=== PATIENT | female | born 1990 | race Caucasian/White ===

== ENCOUNTER 2023-09-30 07:28 | Outpatient (AMB) | payer OTHER, SELFPAY ==
--- NOTE | 2023-09-30 07:32 | MHC.PC.OV ---
Vital Signs 09/30/23 07:33 Height 5 ft 3 in Weight 250 lb BMI 44.3 BP 96/64 Blood Pressure Location Rt brachial Position Sitting Pulse 74 Pulse Source Pulse Oximeter Pulse Oximetry (%) 99 Oxygen Delivery Method Room Air Intake Visit Reasons: npv-requesting phy Intake Note: Pt is here today for New patient visit PE. Allergies aspirin Allergy (Severe, Verified 09/30/23 07:35) rash throat closes bismuth subsalicylate [From Pepto-Bismol] Allergy (Verified 09/30/23 07:35) severe upset stomach Penicillins Allergy (Verified 09/30/23 07:35) rash throat closes Medication List - Last Reconciled 09/30/23 by Valery Tran MD No Known Home Meds Tobacco use date assessed: 09/30/23 Dental Screening Dental Screen Date: 09/30/23 Did you have a dental visit in the last 12 months?: Yes Did you have a dental problem in the last 6 months where you did not have access to dental care?: No Was dental information given to patient?: Patient has dentist HPI npv-requesting phy HPI Details 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 Pt c/o frequent migraine for 10 yrs occasionally 1-2 a week. Patient would like to be referred to be tested for ADHD. She reports history of irregular menses and would like to be evaluated by obstetrics gynecology md. [facility] Surgical History Hx of adenoidectomy Hx of tonsillectomy Hx of cholecystectomy Family History Father No problems noted. Mother Lung disease Social History (Updated 09/30/23 @ 08:26 by Valery Tran MD) Household Members Other:: lives with father, works for [employer], Housing: House Patient Tobacco Use Status: Never used Tobacco e-Cigarette/Vaping Use: Never Used service: No Current occupational status: employed Cognitive needs: No Hearing needs: No Vision needs: Yes Questionnaire PHQ-9 Over the last 2 weeks, how often have you been bothered by any of the following problems? 1. Little interest or pleasure in doing things: not at all 2. Feeling down, depressed, or hopeless: not at all 3. Trouble falling or staying asleep, or sleeping too much: more than half the days 4. Feeling tired or having little energy: more than half the days 5. Poor appetite or overeating: more than half the days 6. Feeling bad about yourself - or that you are a failure or have let yourself or your family down: more than half the days 7. Trouble concentrating on things, such as reading the newspaper or watching television: not at all 8. Moving or speaking so slowly that other people could have noticed. Or the opposite - being so fidgety or restless that you have been moving around a lot more than usual: not at all 9. Thoughts that you would be better off or of hurting yourself in some way: not at all Total score: 8 Depression Screening Interpretation: Negative Depression Screening Done: Yes Source: Developed by Drs. Mina Nixon, Adilia Car, Cayden Ford and colleagues, with an educational tangela from [employer]. Thrive Questionnaire Date Thrive assessed: 09/30/23 I am a: Patient What is your living situation today?: I have a steady place to live Within the past 12 months, did the food you bought not last and you didn't have the money to get more?: Never true Within the past 12 months, did you worry whether your food would run out before you got money to buy more?: Never true Do you have trouble paying for medicines?: No Do you have trouble getting transportation to medical appointments?: No Do you have trouble paying your heating and electricity bill?: No Do you have trouble taking care of your child, family member or friend?: No Do you have trouble with day-to-day activities such as bathing, preparing meals, shopping, managing finances, etc.?: No Are you currently unemployed and looking for a job?: No Are you interested in more education?: No Please select the resources that you would like help with: None THRIVE Score: 0 AUDIT C Alcohol Use Questionnaire (AUDIT-C) 1. How often do you have a drink containing alcohol?: Monthly or less 2. How many drinks containing alcohol do you have on a typical day when you are drinking?: 1 or 2 3. How often do you have six or more drinks on one occasion?: Never Total Score: 1 OSCAR-7 AMB Questionnaire OSCAR-7 Date OSCAR - 7 assessed: 09/30/23 Feeling nervous, anxious, or on edge: 2 = More than half the days Not being able to stop or control worryin = Several days Worrying too much about different things: 2 = More than half the days Trouble relaxin = More than half the days Being so restless that it is hard to sit still: 0 = Not at all Becoming easily annoyed or irritable: 0 = Not at all Feeling afraid as if something awful might happen: 0 = Not at all Total OSCAR-7 score (0-4 normal; 5-9 mild; 10-14 moderate; 15-21 severe): 7 Source: Developed by Drs. Mina Nixon, Adilia Car, Cayden Ford and colleagues, with an educational tangela from [employer]. Review of Systems Const All systems reviewed & are unremarkable except as noted in HPI and below Reports no additional complaints Eyes Reports no additional complaints ENT Reports no additional complaints Card Reports no additional complaints Resp Reports no additional complaints GI Reports no additional complaints Reports no additional complaints Physical exam (Primary Care) Vital Signs: Last Vital Signs Pulse 74 09/30/23 07:33 BP 96/64 09/30/23 07:33 Pulse Ox 99 09/30/23 07:33 Oxygen Delivery Method Room Air 09/30/23 07:33 BMI result Body Mass Index 44.3 Tobacco/Smoking Status: Tobacco use Status Tobacco use date assessed 09/30/23 09/30/23 07:40 Patient Tobacco Use Status Never used Tobacco 09/30/23 08:26 e-Cigarette/Vaping Use Never Used 09/30/23 08:26 PHQ-9: PHQ-9 Score PHQ-9: Total score 8 09/30/23 08:42 Depression Screening Interpretation: Negative Thrive Assessment: Date of Thrive Assessment Date Thrive assessed 09/30/23 09/30/23 08:42 Const General: no acute distress HENMT Head: Yes normal to inspection Ears: hearing grossly normal bilaterally General nose exam: Normal external nose present Face and sinus: Yes normal facial exam Mouth: Normal oral and palatal mucosa present Eyes General: appearance normal, both eyes and all related structures Neck Neck: Yes no lymphadenopathy and Yes supple Resp Effort & Inspection: normal respiratory effort Auscultation: clear to auscultation bilaterally Cardio Rhythm: regular rhythm Heart sounds: S1 normal heart sound present and S2 normal heart sound present GI Inspection: Yes normal to inspection Palpation (GI): Soft to palpation Percussion: Yes normal to percussion Auscultation: normal bowel sounds Assessment and Plan Assessment & Plan (1) Annual physical exam: Code(s): Z00.00 - Encounter for general adult medical examination without abnormal findings Plan: Well-balanced diet regular exercise decrease caloric intake and weight loss discussed with the patient (2) Overweight: Code(s): E66.3 - Overweight Plan: See above (3) Allergies: Comment: Question of food allergy Code(s): T78.40XA - Allergy, unspecified, initial encounter Plan: Referral to the drapery hand (4) ADHD: Code(s): F90.9 - Attention-deficit hyperactivity disorder, unspecified type Plan: Referred to Psychology for ADHD testing (5) Irregular menses: Code(s): N92.6 - Irregular menstruation, unspecified Plan: 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 She will continue [id number] migraine Excedrin as needed Orders: Orders Complete Blood Count Auto Diff Today T78.40XA - Allergy, unspecified, initial encounter Lipid Panel Today E66.3 - Overweight, Z00.00 - Encounter for general adult medical examination without abnormal findings Comprehensive [place]. Panel Fast Today E66.3 - Overweight, Z00.00 - Encounter for general adult medical examination without abnormal findings TSH reflex Free T4 Today E66.3 - Overweight, Z00.00 - Encounter for general adult medical examination without abnormal findings UA w Microscopic Today E66.3 - Overweight, Z00.00 - Encounter for general adult medical examination without abnormal findings DHEA Sulfate Today N92.6 - Irregular menstruation, unspecified Referrals Allergy & Immunology Referral T78.40XA - Allergy, unspecified, initial encounter Psychology Referral F90.9 - Attention-deficit hyperactivity disorder, unspecified type GRADES 1 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
[2023-09-30 07:33] VITALS: BP 96/64; PULSE 74; O2SAT 99; BMI 44.3
== END 2023-09-30 08:39 | disposition home or self-care (01) ==
PROVIDERS: PCP Internal Medicine; Visit Provider Internal Medicine
DX: Z00.00 Encounter for general adult medical examination without abnormal findings (principal); E66.3 Overweight; T78.40XA Allergy, unspecified, initial encounter; F90.9 Attention-deficit hyperactivity disorder, unspecified type; N92.6 Irregular menstruation, unspecified; G43.909 Migraine, unspecified, not intractable, without status migrainosus
CPT/HCPCS: 99385

== ENCOUNTER 2023-10-20 10:32 | Outpatient (REF) | payer OTHER, SELFPAY ==
[2023-10-20 13:36] LABS: Appearance Urine Cloudy; Color Urine Yellow; Glucose Urine UA Negative (Negative); Leukocyte Esterase Urine Moderate (2+) (Negative); Nitrite Urine Negative (Negative); PH 6.5 (5.0-9.0); UMIC TRIGGER UA YES; Urine Blood Moderate (2+) (Negative); Urine Ketones Negative (Negative); Urine Protein Negative (Neg-Trace)
[2023-10-20 13:43] LABS: Bacteria Urine 3+ (None Seen); Hyaline Casts Urine 0-2 /LPF (0-2); WBC Urine >50 /HPF (0-5)
[2023-10-20 13:45] LABS: MANUAL DIFF FLAG NO
[2023-10-20 14:11] LABS: Basophils Absolute Auto 0.1 X10*3/uL (0.0-0.2); Basophils Percent Auto 0.7 % (0-2); Eosinophils Absolute Auto 0.3 X10*3/uL (0.0-0.4); Eosinophils Percent Auto 3.3 % (0-4); Hematocrit 41.9 % (37.0-47.0); Hemoglobin 14.3 g/dl (12.0-16.0); Imm Gran Abs Auto 0.03 X10*3/uL (0.00-0.03); Imm Gran Pct Auto 0.4 % (0.0-0.4); Lymphocytes Absolute Auto 2.2 X10*3/uL (1.2-4.9); Lymphocytes Percent Auto 29.8 % (20-40); Mean Corpuscular HGB Conc 34.1 g/dl (31.0-35.0); Mean Corpuscular Hemoglobin 30.3 pg (27.0-33.0); Mean Corpuscular Volume 88.8 fL (80.0-98.0); Mean Platelet Volume 9.6 fL (9.4-12.3); Monocytes Absolute Auto 0.5 X10*3/uL (0.1-1.2); Monocytes Percent Auto 6.1 % (2-11); Neutrophils Absolute Auto 4.5 x10*3/uL (2.0-8.3); Neutrophils Percent Auto 59.7 % (45-73); Platelet Count 212 X10*3/uL (160-400); Red Blood Count 4.72 X10*6/uL (4.20-5.50); Red Cell Distribution Width 12.4 % (11.0-16.0); White Blood Count 7.5 X10*3/uL (4.8-10.8)
[2023-10-20 14:36] LABS: Alanine Aminotransferase 12 U/L (0-31); Albumin Level 4.2 g/dL (3.5-5.0); Alkaline Phosphatase 77 U/L (39-117); Anion Gap 10 (12-20); Aspartate Amino Transferase 14 U/L (5-31); Bilirubin Total 0.7 mg/dL (0.0-1.0); Blood Urea Nitrogen 10 mg/dL (9-16); Calcium 9.7 mg/dL (8.4-10.2); Carbon Dioxide 27 mmol/L (22-29); Chloride 106 mmol/L (96-108); Cholesterol 160 mg/dL (<200); Estimated Glomerular Filt Rate > 60; Glucose Fasting 101 mg/dL (60-99); HDL Cholesterol 50 mg/dL (>40); LDL Cholesterol Calculated 94 mg/dL (<100); Potassium 4.3 mmol/L (3.3-5.1); Sodium 139 mmol/L (135-145); Total Protein 7.2 g/dL (6.5-8.0); Triglycerides 83 mg/dL (<150)
[2023-10-20 14:39] LABS: TSH reflex Free T4 1.93 uIU/mL (0.32-4.0)
[2023-10-21 07:39] LABS: DHEA Sulfate 58 mcg/dL (19-237)
== END 2023-10-20 10:33 | disposition home or self-care (01) ==
LOC: HO.HMGCLDS 10:32
PROVIDERS: PCP Internal Medicine; Visit Provider Internal Medicine
DX: Z00.00 Encounter for general adult medical examination without abnormal findings (principal); T78.40XA Allergy, unspecified, initial encounter; E66.3 Overweight; N92.6 Irregular menstruation, unspecified
CPT/HCPCS: 36415; 80053; 80061; 81001; 82627; 84443; 85025

== ENCOUNTER 2023-10-22 10:26 | Outpatient (REF) | payer OTHER, SELFPAY ==
[2023-10-22 13:04] LABS: Appearance Urine Clear; Color Urine Yellow; Glucose Urine UA Negative (Negative); Leukocyte Esterase Urine Small (1+) (Negative); Nitrite Urine Negative (Negative); UMIC TRIGGER UA YES; Urine Blood Moderate (2+) (Negative); Urine Ketones Negative (Negative); Urine Protein Negative (Neg-Trace)
[2023-10-22 13:08] LABS: Bacteria Urine 1+ (None Seen); Hyaline Casts Urine 0-2 /LPF (0-2)
== END 2023-10-22 10:27 | disposition home or self-care (01) ==
LOC: HO.HMGCLDS 10:26
PROVIDERS: PCP Internal Medicine; Visit Provider Internal Medicine
DX: Z00.00 Encounter for general adult medical examination without abnormal findings (principal)
CPT/HCPCS: 81001

== ENCOUNTER 2024-01-04 08:52 | Outpatient (AMB) | payer OTHER, SELFPAY ==
[2024-01-04 09:02] VITALS: BP 120/82; PULSE 67; O2SAT 99; BMI 43.9
--- NOTE | 2024-01-04 09:02 | MHC.PC.OV ---
Vital Signs 01/04/24 09:02 Height 5 ft 3 in Weight 248 lb BMI 43.9 BP 120/82 Blood Pressure Location Rt brachial Position Sitting Pulse 67 Pulse Source Pulse Oximeter Pulse Oximetry (%) 99 Oxygen Delivery Method Room Air Intake Visit Reasons: 3M F/U (original appt) Intake Note: Pt is here today for 3 months follow up visit. Allergies aspirin Allergy (Severe, Verified 01/04/24 09:06) rash throat closes bismuth subsalicylate [From Pepto-Bismol] Allergy (Verified 01/04/24 09:06) severe upset stomach Penicillins Allergy (Verified 01/04/24 09:06) rash throat closes Tobacco use date assessed: 01/04/24 Dental Screening Dental Screen Date: 09/30/23 HPI 3M F/U (original appt) HPI Details Pt c/o tingling sensation on the lips for a few days. She denies difficulty swallowing or breathing any triggering factors, change in the diet. She has been using chapstick for dry lips more often for the last few days. [facility] Surgical History Hx of adenoidectomy Hx of tonsillectomy Hx of cholecystectomy Family History Father No problems noted. Mother Lung disease Social History Household Members Other:: lives with father, works for [employer], Housing: House Patient Tobacco Use Status: Never used Tobacco e-Cigarette/Vaping Use: Never Used service: No Current occupational status: employed Cognitive needs: No Hearing needs: No Vision needs: Yes Questionnaire PHQ-9 Over the last 2 weeks, how often have you been bothered by any of the following problems? 1. Little interest or pleasure in doing things: not at all 2. Feeling down, depressed, or hopeless: not at all 3. Trouble falling or staying asleep, or sleeping too much: not at all 4. Feeling tired or having little energy: several days 5. Poor appetite or overeating: several days 6. Feeling bad about yourself - or that you are a failure or have let yourself or your family down: not at all 7. Trouble concentrating on things, such as reading the newspaper or watching television: not at all 8. Moving or speaking so slowly that other people could have noticed. Or the opposite - being so fidgety or restless that you have been moving around a lot more than usual: not at all 9. Thoughts that you would be better off or of hurting yourself in some way: not at all Total score: 2 Depression Screening Interpretation: Negative Depression Screening Done: Yes [id number] - PHQ-9 Billing: Yes Source: Developed by Drs. Mina Nixon, Adilia Car, Cayden Ford and colleagues, with an educational tangela from [employer]. Thrive Questionnaire Date Thrive assessed: 12/28/23 I am a: Patient What is your living situation today?: I have a steady place to live Within the past 12 months, did the food you bought not last and you didn't have the money to get more?: Never true Within the past 12 months, did you worry whether your food would run out before you got money to buy more?: Never true Do you have trouble paying for medicines?: No Do you have trouble getting transportation to medical appointments?: No Do you have trouble paying your heating and electricity bill?: No Do you have trouble taking care of your child, family member or friend?: No Do you have trouble with day-to-day activities such as bathing, preparing meals, shopping, managing finances, etc.?: No Are you interested in more education?: I choose not to answer this question Please select the resources that you would like help with: None Currently or been in a relationship where the following occur: No concerns reported THRIVE Score: 0 AUDIT C Alcohol Use Questionnaire (AUDIT-C) 1. How often do you have a drink containing alcohol?: Monthly or less 2. How many drinks containing alcohol do you have on a typical day when you are drinking?: 1 or 2 3. How often do you have six or more drinks on one occasion?: Never Total Score: 1 OSCAR-7 AMB Questionnaire OSCAR-7 Date OSCAR - 7 assessed: 09/30/23 Feeling nervous, anxious, or on edge: 1 = Several days Not being able to stop or control worryin = Several days Worrying too much about different things: 1 = Several days Trouble relaxin = Not at all Being so restless that it is hard to sit still: 0 = Not at all Becoming easily annoyed or irritable: 0 = Not at all Feeling afraid as if something awful might happen: 1 = Several days Total OSCAR-7 score (0-4 normal; 5-9 mild; 10-14 moderate; 15-21 severe): 4 Source: Developed by Drs. Mina Nixon, Adilia Car, Cayden Ford and colleagues, with an educational tangela from [employer]. Review of Systems Const All systems reviewed & are unremarkable except as noted in HPI and below ENT Reports no additional complaints Card Reports no additional complaints Resp Reports no additional complaints GI Reports no additional complaints Reports no additional complaints Physical exam (Primary Care) Vital Signs: Last Vital Signs Pulse 67 01/04/24 09:02 BP 120/82 01/04/24 09:02 Pulse Ox 99 01/04/24 09:02 Oxygen Delivery Method Room Air 01/04/24 09:02 BMI result Body Mass Index 43.9 Tobacco/Smoking Status: Tobacco use Status Tobacco use date assessed 01/04/24 01/04/24 09:09 Patient Tobacco Use Status Never used Tobacco 01/04/24 09:09 e-Cigarette/Vaping Use Never Used 01/04/24 09:02 PHQ-9: PHQ-9 Score PHQ-9: Total score 2 01/04/24 09:02 Depression Screening Interpretation: Negative Thrive Assessment: Date of Thrive Assessment Date Thrive assessed 12/28/23 01/04/24 09:02 Currently or been in a relationship where the following occur: No concerns reported Const General: no acute distress HENMT Head: Yes normal to inspection Face and sinus: Yes normal facial exam Mouth: Normal oral and palatal mucosa present and other (Dry lips ) Teeth and gingiva: dentition normal Throat: Yes posterior oropharynx normal Eyes General: appearance normal, both eyes and all related structures Resp Effort & Inspection: normal respiratory effort Auscultation: clear to auscultation bilaterally Cardio Rhythm: regular rhythm Heart sounds: S1 normal heart sound present and S2 normal heart sound present Coding Level of Care Code Est Pt Level 3 (67808) Diagnoses Dry lips K13.0 Assessment & Plan Assessment & Plan (1) Dry lips: Code(s): K13.0 - Diseases of lips Category: Medical Plan: Patient was advised to stop using chapstick as it may cause allergic reaction. She will keep her lips moist with petroleum jelly applied multiple times
== END 2024-01-04 09:56 | disposition home or self-care (01) ==
PROVIDERS: PCP Internal Medicine; Visit Provider Internal Medicine
DX: K13.0 Diseases of lips (principal)

== ENCOUNTER → 2024-01-04 08:52 | Outpatient (BNVA) | payer OTHER, SELFPAY | PROVIDERS: PCP Internal Medicine; Visit Provider Internal Medicine | DX: K13.0 Diseases of lips (principal) | CPT/HCPCS: 96127; 99212 ==

== ENCOUNTER 2024-01-14 09:09 | Outpatient (AMB) | payer OTHER, SELFPAY ==
[2024-01-14 09:52] VITALS: BP 118/80; PULSE 78; O2SAT 97
--- NOTE | 2024-01-14 09:52 | MHC.OFFWIV ---
Intake Vital Signs 01/14/24 09:52 Weight 250 lb BP 118/80 Blood Pressure Location Rt brachial Position Sitting Pulse 78 Pulse Source Pulse Oximeter Pulse Oximetry (%) 97 Oxygen Delivery Method Room Air Intake Visit Reasons: EP-rt foot pain Intake Note: Patient here for right foot pain, she states its tender to touch which has been present for about 3 days. Patient Tobacco Use Status: Never used Tobacco Allergies aspirin Allergy (Severe, Verified 01/14/24 09:53) rash throat closes bismuth subsalicylate [From Pepto-Bismol] Allergy (Verified 01/14/24 09:53) severe upset stomach Penicillins Allergy (Verified 01/14/24 09:53) rash throat closes Do you need a note to return to daycare/school/sports/work: No HPI EP-rt foot pain HPI Details This note is constructed using voice recognition software. While every effort has been made to ensure accuracy, personnel and payroll technician errors may have been included. The patient is a 33 year old female who presents to the clinic today with left foot and ankle pain for the past 3 days. She denies any injury to the area, any bite to the area, any previous surgery to the area. She reports the pain to be worse on flexion, or when anything touches the top of her foot near the ankle. She denies redness, warmth. She reports a slight limp when she is working on her feet all day yesterday. [facility] Surgical History Hx of adenoidectomy Hx of tonsillectomy Hx of cholecystectomy Family History Father No problems noted. Mother Lung disease Social History Household Members Other:: lives with father, works for [employer], Housing: House Patient Tobacco Use Status: Never used Tobacco e-Cigarette/Vaping Use: Never Used service: No Current occupational status: employed Cognitive needs: No Hearing needs: No Vision needs: Yes Review of Systems Const All systems reviewed & are unremarkable except as noted in HPI and below Physical Exam Vital Signs: Last Vital Signs Pulse 78 01/14/24 09:52 BP 118/80 01/14/24 09:52 Pulse Ox 97 01/14/24 09:52 Oxygen Delivery Method Room Air 01/14/24 09:52 Const General: cooperative, healthy appearing, comfortable, no acute distress and well developed Orientation/consciousness: patient oriented x3 Limitations: no limitations Resp Effort & Inspection: normal respiratory effort and able to speak in complete sentences Skin General skin exam: no rashes or lesions noted Neuro General: patient oriented x3 Extrem Other: Right foot, ankle, knee full range of motion. Tender to palpation inferior lateral malleolus, with slight edema. No erythema, warmth, or ecchymosis. General: Yes normal to inspection Assessment & Plan Assessment & Plan (1) Right ankle sprain: Code(s): S93.401A - Sprain of unspecified ligament of right ankle, initial encounter Qualifiers: Encounter type: initial encounter Involved ligament of ankle: unspecified ligament Qualified Code(s): S93.401A - Sprain of unspecified ligament of right ankle, initial encounter Plan: Low-grade sprain. Using the auto ankle rolled patient is not appropriate for imaging at this time. Advised rest, ice, compression, elevation, NSAIDs for pain. Luther wrap applied. Advised follow up with ongoing pain, worsening symptoms. Plan See above for full details and plan. Coding Level of Care Code Est Pt Level 3 (22299) Diagnoses Sprain of right ankle, unspecified ligament, initial encounter S93.401A Encounter type: initial encounter Involved ligament of ankle: unspecified ligament
== END 2024-01-14 10:42 | disposition home or self-care (01) ==
PROVIDERS: PCP Internal Medicine; Visit Provider Registered Nurse
DX: S93.401A Sprain of unspecified ligament of right ankle, initial encounter (principal)

== ENCOUNTER → 2024-01-14 09:09 | Outpatient (BNVA) | payer OTHER, SELFPAY | PROVIDERS: PCP Internal Medicine; Visit Provider Registered Nurse | DX: S93.401A Sprain of unspecified ligament of right ankle, initial encounter (principal) | CPT/HCPCS: 99212 ==

== ENCOUNTER 2024-01-18 11:49 | Outpatient (AMB) | payer OTHER, SELFPAY ==
[2024-01-18 12:16] VITALS: BP 122/80; PULSE 69; O2SAT 99
--- NOTE | 2024-01-18 12:16 | AM.OFFWIN_ITS ---
Intake Vital Signs 01/18/24 12:16 Weight 250 lb BP 122/80 Blood Pressure Location Rt brachial Position Sitting Pulse 69 Pulse Source Pulse Oximeter Pulse Oximetry (%) 99 Oxygen Delivery Method Room Air Intake Visit Reasons: EP RT foot sprain, not better Patient Tobacco Use Status: Never used Tobacco Allergies aspirin Allergy (Severe, Verified 01/14/24 09:53) rash throat closes bismuth subsalicylate [From Pepto-Bismol] Allergy (Verified 01/14/24 09:53) severe upset stomach Penicillins Allergy (Verified 01/14/24 09:53) rash throat closes HPI EP RT foot sprain, not better HPI Details This note is constructed using voice recognition software. While every effort has been made to ensure accuracy, university controller errors may have been included. The patient is a 33 year old female who presents to the clinic today with left foot and ankle pain for the past 1 week, and seen in clinic 4 days ago. She denies any injury to the area, any bite to the area, any previous surgery to the area. She reports the pain to be worse on flexion, or when anything touches the top of her foot near the ankle. She denies redness, warmth. She reports a slight limp when she is working on her feet all day. She reports that the pain is now worse since onset, and it makes it quite difficult for her to put any weight bearing on the foot at all. She is wearing a compression sleeve, and trying ice with no relief. [facility] Surgical History Hx of adenoidectomy Hx of tonsillectomy Hx of cholecystectomy Family History Father No problems noted. Mother Lung disease Social History Household Members Other:: lives with father, works for [employer], Housing: House Patient Tobacco Use Status: Never used Tobacco e-Cigarette/Vaping Use: Never Used service: No Current occupational status: employed Cognitive needs: No Hearing needs: No Vision needs: Yes Review of Systems Const All systems reviewed & are unremarkable except as noted in HPI and below Physical Exam Vital Signs: Last Vital Signs Pulse 69 01/18/24 12:16 BP 122/80 01/18/24 12:16 Pulse Ox 99 01/18/24 12:16 Oxygen Delivery Method Room Air 01/18/24 12:16 Const General: cooperative, healthy appearing, comfortable, no acute distress and well developed Orientation/consciousness: patient oriented x3 Limitations: no limitations Resp Effort & Inspection: normal respiratory effort and able to speak in complete sentences Skin General skin exam: no rashes or lesions noted Neuro General: patient oriented x3 Extrem Other: Right foot, ankle, knee full range of motion. Tender to palpation inferior lateral malleolus as well as navicular region. No erythema, edema, warmth, or ecchymosis. General: Yes normal to inspection Assessment & Plan Assessment & Plan (1) Right ankle sprain: Code(s): S93.401A - Sprain of unspecified ligament of right ankle, initial encounter Qualifiers: Encounter type: subsequent encounter Involved ligament of ankle: unspecified ligament Qualified Code(s): S93.401D - Sprain of unspecified ligament of right ankle, subsequent encounter Plan: Advised rest, ice, compression, elevation, NSAIDs for pain. Advised follow up with ongoing pain, worsening symptoms. (2) Foot contusion: Code(s): S90.30XA - Contusion of unspecified foot, initial encounter Qualifiers: Encounter type: subsequent encounter Laterality: right Qualified Code(s): S90.31XD - Contusion of right foot, subsequent encounter Plan: Given ongoing and worsening pain, imaging performed to rule out fracture, which appears negative. Advised nonweightbearing for resolution of symptoms. Patient did not feel that she would be able to use crutches, placed in a boot. Advised follow up with worsening pain or failure to resolve. Plan See above for full details and plan. Orders: Orders XR foot RT min 3V Today M79.671 - Pain in right foot, S93.401A - Sprain of unspecified ligament of right ankle, initial encounter Coding Level of Care Code Est Pt Level 4 (66124) Diagnoses Sprain of right ankle, unspecified ligament, subsequent encounter S93.401D Encounter type: subsequent encounter Involved ligament of ankle: unspecified ligament Contusion of right foot, subsequent encounter S90.31XD Encounter type: subsequent encounter Laterality: right
== END 2024-01-18 13:45 | disposition home or self-care (01) ==
PROVIDERS: PCP Internal Medicine; Visit Provider Registered Nurse
DX: S93.401D Sprain of unspecified ligament of right ankle, subsequent encounter (principal); S90.31XD Contusion of right foot, subsequent encounter

== ENCOUNTER 2024-01-18 11:49 | Outpatient (REF) | payer OTHER, SELFPAY ==
--- NOTE | ~2024-01-18 | XR_ITS ---
EXAMINATION: XR FOOT, RIGHT CLINICAL INFORMATION: Right foot pain along top of foot, sprain of unspecified ligament of ankle. COMPARISON: None available. TECHNIQUE: AP, lateral, and oblique views of the right foot. FINDINGS: Prominent plantar calcaneal spur. Bone mineralization is normal. Minimal degenerative changes in the first metatarsophalangeal joint. XR/XR foot RT min 3V IMPRESSION: 1. Prominent plantar calcaneal spur. 2. Minimal degenerative changes first metatarsophalangeal joint. Electronically signed by: Mackenzie Jorge MD 01/19/2024 06:58 AM EDT
== END 2024-01-18 11:50 | disposition home or self-care (01) ==
LOC: HO.HMGCX 11:49
PROVIDERS: PCP Internal Medicine; Visit Provider Registered Nurse
DX: M79.671 Pain in right foot (principal); S93.401D Sprain of unspecified ligament of right ankle, subsequent encounter; S90.31XD Contusion of right foot, subsequent encounter
CPT/HCPCS: 73630; 99212

== ENCOUNTER 2024-02-11 12:37 | Outpatient (AMB) | payer OTHER, SELFPAY ==
--- NOTE | 2024-02-11 12:58 | A.OFFPC_ITS ---
Vital Signs 02/11/24 12:59 Height 5 ft 3 in Weight 240 lb BMI 42.5 BP 118/70 Blood Pressure Location Rt brachial Position Sitting Pulse 82 Pulse Source Pulse Oximeter Pulse Oximetry (%) 98 Oxygen Delivery Method Room Air Intake Visit Reasons: Xrays results Allergies aspirin Allergy (Severe, Verified 02/11/24 13:03) rash throat closes bismuth subsalicylate [From Pepto-Bismol] Allergy (Verified 02/11/24 13:03) severe upset stomach Penicillins Allergy (Verified 02/11/24 13:03) rash throat closes Medication List - Last Reconciled 02/11/24 by Valery Tran MD prednisone 20 mg PO DAILY Tobacco use date assessed: 02/11/24 Dental Screening Dental Screen Date: 09/30/23 HPI Xrays results HPI Details Patient presents for the follow-up of right ankle pain for 1 month. She denies any injury. she was seen in the urgent care and ER 3 weeks ago. x-ray showed mild degenerative changes and patient was given a boot that she has been wearing for the last month. Patient reports pain in the dorsum of her right foot and medial aspect of the ankle worse when sitting or lying down but no soft tissue swelling erythema or warmth. 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 [facility] Surgical History Hx of adenoidectomy Hx of tonsillectomy Hx of cholecystectomy Family History Father No problems noted. Mother Lung disease Social History Household Members Other:: lives with father, works for [employer], Housing: House Patient Tobacco Use Status: Never used Tobacco e-Cigarette/Vaping Use: Never Used service: No Current occupational status: employed Cognitive needs: No Hearing needs: No Vision needs: Yes Questionnaire Thrive Questionnaire Date Thrive assessed: 12/28/23 I am a: Patient What is your living situation today?: I have a steady place to live Within the past 12 months, did the food you bought not last and you didn't have the money to get more?: Never true Within the past 12 months, did you worry whether your food would run out before you got money to buy more?: Never true Do you have trouble paying for medicines?: No Do you have trouble getting transportation to medical appointments?: No Do you have trouble paying your heating and electricity bill?: No Do you have trouble taking care of your child, family member or friend?: No Do you have trouble with day-to-day activities such as bathing, preparing meals, shopping, managing finances, etc.?: No Are you currently unemployed and looking for a job?: No Are you interested in more education?: I choose not to answer this question Please select the resources that you would like help with: None Currently or been in a relationship where the following occur: No concerns reported THRIVE Score: 0 OSCAR-7 AMB Questionnaire OSCAR-7 Date OSCAR - 7 assessed: 09/30/23 Source: Developed by Drs. Mina Nixon, Adilia Car, Cayden Ford and colleagues, with an educational tangela from [employer]. Review of Systems Const All systems reviewed & are unremarkable except as noted in HPI and below Card Reports no additional complaints Resp Reports no additional complaints GI Reports no additional complaints Reports no additional complaints Physical exam (Primary Care) Vital Signs: Last Vital Signs Pulse 82 02/11/24 12:59 BP 118/70 02/11/24 12:59 Pulse Ox 98 02/11/24 12:59 Oxygen Delivery Method Room Air 02/11/24 12:59 BMI result Body Mass Index 42.5 Tobacco/Smoking Status: Tobacco use Status Tobacco use date assessed 02/11/24 02/11/24 13:04 Patient Tobacco Use Status Never used Tobacco 02/11/24 12:59 e-Cigarette/Vaping Use Never Used 02/11/24 12:59 Thrive Assessment: Date of Thrive Assessment Date Thrive assessed 12/28/23 02/11/24 12:59 Currently or been in a relationship where the following occur: No concerns reported Const General: no acute distress HENMT Throat: Yes posterior oropharynx normal Resp Effort & Inspection: normal respiratory effort Cardio Rhythm: regular rhythm Heart sounds: S1 normal heart sound present and S2 normal heart sound present Extrem Other: Right ankle with a full range of motion, no soft tissue swelling erythema or warmth. there is slight reproducible tenderness on the dorsum of right foot and lower anterior butler, patient is able to walk on toes and heels without difficulty Coding Level of Care Code Est Pt Level 3 (72996) Diagnoses Right ankle pain M25.571 Assessment & Plan Assessment & Plan (1) Right ankle pain: Code(s): M25.571 - Pain in right ankle and joints of right foot Category: Medical Plan: For right ankle and foot pain prednisone 20 mg daily for 7 days is prescribed patient will be referred to physical therapy. She has an appointment with orthopedic surgeon in 2 weeks Orders: Orders PT Evaluation and Treatment Today M25.571 - Pain in right ankle and joints of right foot Medications: New prednisone 20 mg PO DAILY 7 tabs 0RF
[2024-02-11 12:59] VITALS: BP 118/70; PULSE 82; O2SAT 98; BMI 42.5
== END 2024-02-11 13:47 | disposition home or self-care (01) ==
PROVIDERS: PCP Internal Medicine; Visit Provider Internal Medicine
DX: M25.571 Pain in right ankle and joints of right foot (principal)

== ENCOUNTER → 2024-02-11 12:37 | Outpatient (BNVA) | payer OTHER, SELFPAY | PROVIDERS: PCP Internal Medicine; Visit Provider Internal Medicine | DX: M25.571 Pain in right ankle and joints of right foot (principal) | CPT/HCPCS: 99212 ==

== ENCOUNTER 2024-03-09 11:00 | Outpatient (RCR) | payer OTHER, SELFPAY ==
--- NOTE | 2024-02-25 11:24 | MHC.PT.EP ---
[facility] [place] Office [place] [facility] [place] [facility] [address] Juliana Sanchez [address] [phone] F: [phone] F: [phone] F: [phone] F: [phone] Physical Therapy Plan of Care Date of Evaluation: 02/25/24 Date of Surgery: n/a Diagnosis: pain in R ankle/foot Assessment: Patient is a 33 year old female presenting to PT with complaints of pain in her R ankle/foot. Pt reports onset of pain began 01/13/2024 due to insidious onset. She presents today with impairments in pain, ankle strength, balance. 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 Pt expresses residential goal of reducing pain, and is motivated to work towards this in PT. Clinical presentation today is most consistent with signs and sx associated with R ankle/foot pain and pt will benefit from skilled PT 2 week x 4 weeks to address the following problems and impairments noted upon evaluation: pain, ankle strength, balance.. These problems limit the patient with the following functional activities: ADLs, ambulating, work, stair negotiation. The prescribed treatment plan of care is medically necessary. Co-morbidities of none were identified and taken into considerations of plan of care. Pt was educated on HEP, role of PT, prognosis, POC. Frequency and Duration: The patient will be seen 2 x week x 4 weeks Short Term Goals: Pt will demonstrate ability to perform SLS on R for 30 sec in 2 weeks. Pt will demonstrate 5/5 ankle strength for DF in 2 weeks. Medical Parasitologist Goals: Pt will demonstrate improved LEFI score by 9 points in 4 weeks for improved functional mobility. Pt will demonstrate ability to work a full day with min to no pain at the end in 4 weeks for return to PLOF. Pt will demonstrate ability to ambulate with min to no pain in 4 weeks for return to PLOF. Treatment Plan: Modalities to reduce pain, spasms and effusion. Manual therapy to restore motion and function. Therapeutic exercise to improve strength and flexibility. Neuromuscular re-education for posture and balance. Therapeutic activities to return to functional activities of daily living. Electronically signed by: Zakia Brown, PT, DPT, ATC Please sign and return to therapist. Thank you for your referral.
--- NOTE | 2024-04-01 07:51 | MHC.PT.DC ---
[facility] [place] [facility] [place] Office [place] Office [address] [facility] [phone] F: [phone] F: [phone] F: [phone] F: [phone] Physical Therapy Discharge Report Diagnosis: pain in R ankle/foot Date of Surgery: n/a Date of Evaluation: 02/25/24 Date of Discharge: 04/01/24 Treatments to Date: 5 Cancellations to Date: 1 No Shows to Date: 0 Discharge Status: Patient Elected to Stop Discharge Summary: Pt cancelled last scheduled appointment and did not rescheduled. Therefore to be d/c. Electronically signed by: Zakia Brown, PT, DPT, ATC Please sign and return to therapist. Thank you for your referral.
== END 2024-04-01 07:51 | disposition home or self-care (01) ==
LOC: HO.PTCHIC 11:00
PROVIDERS: PCP Internal Medicine; Visit Provider Internal Medicine
DX: M25.571 Pain in right ankle and joints of right foot (principal)
CPT/HCPCS: 97110; 97140; 97161

== ENCOUNTER 2024-10-03 13:28 | Outpatient (AMB) | payer OTHER, SELFPAY ==
--- NOTE | 2024-10-03 13:38 | A.OFFPC_ITS ---
Vital Signs 10/03/24 13:39 Height 5 ft 3 in Weight 245 lb BMI 43.4 BP 120/74 Blood Pressure Location Lt brachial Position Sitting Respiration 18 Pulse 68 Pulse Source Pulse Oximeter Pulse Oximetry (%) 98 Oxygen Delivery Method Room Air Intake Visit Reasons: Annual PE Intake Note: Pt is here today for PE. Allergies aspirin Allergy (Severe, Verified 10/03/24 13:40) rash throat closes bismuth subsalicylate (From Pepto-Bismol) Allergy (Verified 10/03/24 13:40) severe upset stomach Penicillins Allergy (Verified 10/03/24 13:40) rash throat closes Tobacco use date assessed: 10/03/24 Dental Screening Dental Screen Date: 10/03/24 HPI Annual PE HPI Details Pt presents for PE. [facility] Medical History (Updated 10/03/24 @ 14:19 by Valery Tran MD) Annual physical exam Surgical History Hx of adenoidectomy Hx of tonsillectomy Hx of cholecystectomy Family History Father No problems noted. Mother Lung disease Social History Household Members Other:: lives with father, works for [employer], Housing: House Patient Tobacco Use Status: Never used Tobacco e-Cigarette/Vaping Use: Never Used service: No Current occupational status: employed Cognitive needs: No Hearing needs: No Vision needs: Yes Questionnaire PHQ-9 Over the last 2 weeks, how often have you been bothered by any of the following problems? 1. Little interest or pleasure in doing things: not at all 2. Feeling down, depressed, or hopeless: not at all 3. Trouble falling or staying asleep, or sleeping too much: not at all 4. Feeling tired or having little energy: not at all 5. Poor appetite or overeating: not at all 6. Feeling bad about yourself - or that you are a failure or have let yourself or your family down: not at all 7. Trouble concentrating on things, such as reading the newspaper or watching television: not at all 8. Moving or speaking so slowly that other people could have noticed. Or the opposite - being so fidgety or restless that you have been moving around a lot more than usual: not at all 9. Thoughts that you would be better off or of hurting yourself in some way: not at all Total score: 0 Depression Screening Interpretation: Negative Depression Screening Done: Yes 81946 - PHQ-9 Billing: Yes Source: Developed by Drs. Mina Nixon, Adilia Car, Cayden Ford and colleagues, with an educational tangela from [employer]. Thrive Questionnaire Date Thrive assessed: 10/03/24 I am a: Patient What is your living situation today?: I have a steady place to live Within the past 12 months, did the food you bought not last and you didn't have the money to get more?: Never true Within the past 12 months, did you worry whether your food would run out before you got money to buy more?: Never true Do you have trouble paying for medicines?: No Do you have trouble getting transportation to medical appointments?: No Do you have trouble paying your heating and electricity bill?: No Do you have trouble taking care of your child, family member or friend?: No Do you have trouble with day-to-day activities such as bathing, preparing meals, shopping, managing finances, etc.?: No Are you currently unemployed and looking for a job?: No Are you interested in more education?: No Please select the resources that you would like help with: None Currently or been in a relationship where the following occur: No concerns reported THRIVE Score: 0 AUDIT C Alcohol Use Questionnaire (AUDIT-C) 1. How often do you have a drink containing alcohol?: Monthly or less 2. How many drinks containing alcohol do you have on a typical day when you are drinking?: 1 or 2 3. How often do you have six or more drinks on one occasion?: Never Total Score: 1 OSCAR-7 AMB Questionnaire OSCAR-7 Date OSCAR - 7 assessed: 10/03/24 Feeling nervous, anxious, or on edge: 1 = Several days Not being able to stop or control worryin = Several days Worrying too much about different things: 1 = Several days Trouble relaxin = Several days Being so restless that it is hard to sit still: 0 = Not at all Becoming easily annoyed or irritable: 0 = Not at all Feeling afraid as if something awful might happen: 0 = Not at all Total OSCAR-7 score (0-4 normal; 5-9 mild; 10-14 moderate; 15-21 severe): 4 Source: Developed by Drs. Mina Nixon, Adilia Car, Cayden Ford and colleagues, with an educational tangela from [employer]. OSCAR-7 Assessment Billing OSCAR-7 Assessment Tool: OSCAR-7 Assessment 86127 Review of Systems Const All systems reviewed & are unremarkable except as noted in HPI and below Eyes Reports no additional complaints ENT Reports no additional complaints Card Reports no additional complaints Resp Reports no additional complaints GI Reports no additional complaints Reports no additional complaints Physical exam (Primary Care) Vital Signs: Last Vital Signs Pulse 68 10/03/24 13:39 Resp 18 10/03/24 13:39 BP 120/74 10/03/24 13:39 Pulse Ox 98 10/03/24 13:39 Oxygen Delivery Method Room Air 10/03/24 13:39 BMI result Body Mass Index 43.4 Tobacco/Smoking Status: Tobacco use Status Tobacco use date assessed 10/03/24 10/03/24 13:41 Patient Tobacco Use Status Never used Tobacco 10/03/24 13:41 e-Cigarette/Vaping Use Never Used 10/03/24 13:41 PHQ-9: PHQ-9 Score PHQ-9: Total score 0 10/03/24 13:41 Depression Screening Interpretation: Negative Thrive Assessment: Date of Thrive Assessment Date Thrive assessed 10/03/24 10/03/24 13:41 Currently or been in a relationship where the following occur: No concerns reported Const General: no acute distress HENMT Head: Yes normal to inspection Ears: hearing grossly normal bilaterally Face and sinus: Yes normal facial exam Mouth: Normal oral and palatal mucosa present Throat: Yes posterior oropharynx normal Eyes General: appearance normal, both eyes and all related structures Neck Neck: Yes no lymphadenopathy and Yes supple Resp Effort & Inspection: normal respiratory effort Auscultation: clear to auscultation bilaterally GI Inspection: Yes normal to inspection Palpation (GI): Soft to palpation Percussion: Yes normal to percussion Auscultation: normal bowel sounds Coding Level of Care Code Est Pt Prev Care 18-39y(29684) Diagnoses Annual physical exam Z00.00 Additional Codes OSCAR-7 Assessment Billing - OSCAR-7 Assessment Tool: OSCAR-7 Assessment 82565 ([id number]) PHQ-9 - 36008 - PHQ-9 Billing: Yes ([id number]) Assessment & Plan Assessment & Plan (1) Annual physical exam: Code(s): Z00.00 - Encounter for general adult medical examination without abnormal findings Category: Medical Plan: Well balanced diet, regular exercise, weight loss discussed with the patient. She will schedule an appointment with quartz orientator for pelvic exam
[2024-10-03 13:39] VITALS: BP 120/74; PULSE 68; RESP 18; O2SAT 98; BMI 43.4
--- OUTSIDE RECORDS SUMMARY | 2024-10-03 14:37 | XMS_ITS | Data Portability ---
Author Organization [facility], [address] Address [address] [place] [address] Assessment No assessment recorded. Plan of Treatment Reminders Order Date Submit Date Provider Last Modified By Organization Details Last Modified Time Details Appointments None recorded. Lab rapid SARS CoV 2 Ag, QL IA, respiratory specimen 2022 023 [facility] [address] [place] [address], [address] [place] [address], [phone], 3 12:20:34 rapid flu (A+B) 2022 023 [facility] [address] [place] [address], [address] [place] [address], [phone], 3 12:20:34 Referral None recorded. Procedures None recorded. Surgeries None recorded. Imaging None recorded. Medication Orders prednisone 50 mg tablet 2022 023 [facility], [address] [place], [place], [id number], 3 12:20:43 fexofenadin e-pseudoeph edrine ER 180 mg-240 mg tablet,ext. release 24 hr 2022 023 [facility], [address] [place], [place], [id number], 3 12:20:43 Patient TargetsNo targets recorded. Patient Instructions Encounter Date Encounter Id Patient Instructions Last Modified By Organization Details Last Modified Time 04/06/2022 [id number] coronavirus (covid-19): care instructions Not available 04/06/2022 12:20:34 fatigue: care instructions Not available 04/06/2022 12:20:34 - Use the medications prescribed. - Decongestants if tolerated. - Recommend recheck if fever develops or no improvement in 5-7 days. - Use saline nasal spray or neti-pot flushes once to twice a day to loosen mucus in sinuses. - I recommend having your ear rechecked in in 2 weeks with your primary provider to verify infection has resolved. -.Use a cool mist humidifier in the room that you sleep to add moisture to the air, which should soothe the airways and help loosen any mucus that may be present. -Call 911 or proceed to nearest Emergency Department if you develop shortness of breath, chest pain, severe headache or other symptoms that concern you. Not available 04/06/2022 12:18:05 If you test positive for COVID-19, stay home for at least 5 days and isolate from others in your home. You are likely most infectious during these first 5 days. Wear a high-quality mask if you must be around others at home and in public. Do not go places where you are unable to wear a mask. For travel guidance, see CDC s Travel webpage. Do not travel. Stay home and separate from others as much as possible. Use a separate bathroom, if possible. Take steps to improve ventilation at home, if possible. Don t share personal household items, like cups, towels, and utensils. Monitor your symptoms. If you have an emergency warning sign (like trouble breathing), seek emergency medical care immediately. If you had symptoms and: Your symptoms are improving You may end isolation after day 5 if: You are fever-free for 24 hours (without the use of fever-reducing medication). Your symptoms are not improving Continue to isolate until: You are fever-free for 24 hours (without the use of fever-reducing medication). Your symptoms are improving. Regardless of when you end isolation Until at least day 11: Avoid being around people who are more likely to get very sick from COVID-19. Remember to wear a high-quality mask when indoors around others at home and in public. Do not go places where you are unable to wear a mask until you are able to discontinue masking (see below). For travel guidance, see [facility] s Travel webpage. flory Not available 04/06/2022 12:18:12 Reason for Referral None Reported. Results Created Date Observation Date Name Description Value Unit Range Abnormal Flag Note LastModifiedBy Organization Detail LastModifiedTime 04/06/19 23 04/06/2022 rapid SARS CoV 2 Ag, QL IA, respi rator y speci men Unknown Analyte Normal =Negat charlie Not Available [address] [place] [address], [phone], 04/06/2022 11:36:26 04/06/19 23 04/06/2022 rapid SARS CoV 2 Ag, QL IA, respi rator y speci men Unknown Analyte negati ve Not Available [address] [place] [address], [phone], 04/06/2022 11:36:26 04/06/19 23 04/06/2022 rapid flu (A+B) Unknown Analyte Normal = Negati ve Not Available [address] [place] [address], [phone], 04/06/2022 11:36:44 04/06/19 23 04/06/2022 rapid flu (A+B) Unknown Analyte negati ve Not Available [address] [place] [address], [phone], 04/06/2022 11:36:44 04/06/19 23 04/06/2022 rapid flu (A+B) Unknown Analyte Normal = Negati ve Not Available [address] [place] [address], [phone], 04/06/2022 11:36:44 04/06/19 23 04/06/2022 rapid flu (A+B) Unknown Analyte negati ve Not Available [address] [facility], [place], [address], 04/06/2022 11:36:44 Result Notes None recorded. Problems Name Problem SNOMED Code Status Onset Date Resolution Date Notes Provider Name and Address Organization Details Recorded Time Obese 070153703 Active 04/06/19 23 DANIELE WAYNE null, [place] - [facility] 04/06/2022 11:39:39 Problem Notes None recorded. Procedures Surgical History Date Name Laterality Status Provider Name and Address Organization Details Recorded Time Remove tonsils and adenoids completed DANIELE BLACK PA - [facility] 04/06/2022 11:39:46 procedure on gallbladder completed DANIELE BLACK PA - [facility] 04/06/2022 11:39:57 Imaging Results None recorded. Procedure Notes None recorded. Medical Equipment None Reported. Allergies Allergen ID Allergen Name Allergen Category Reaction Reaction Severity Criticality Documentation Date Start Date Code Code System Note Provider Name and Address Organization Details Recorded Time 405474 aspirin medicatio n anaphylax is severe high 04/06/2022 1191 RxNorm DANIELE BLACK null, PA - [facility] 3 11:38:11 351373 Product containin g penicilli n (product) medicatio n anaphylax is Not available high 04/06/2022 29505 8001 SNOMED DANIELE WAYNE null, PA - [facility] 3 11:38:08 Medications Name Sig Start Date Stop Date Status Note LastModified by Organization Details LastModified Time prednisone 20 mg tablet TAKE 2 TABLETS BY MOUTH DAILY FOR 5 DAYS 04/06 completed Not Available Not Available Not Available prednisone 50 mg tablet Take 1 tablet every day by oral route in the morning for 4 days. 2022 active Not Available Not Available Not Avai lable fexofenadine -pseudoephed rine ER 180 mg-240 mg tablet,ext.r elease 24 hr Take 1 tablet every day by oral route in the evening for 10 days. 2022 active Not Available Not Available Not Avai lable Vitals Date Recorded Respiratory rate Body height Body mass index (BMI) Body weight Body temperature Heart rate Oxygen saturation Oxygen saturation in Arterial blood by Pulse oximetry Systolic And Diastolic Provider Name and Address Organization Details Last Updated DateTime 19 /min 157.48 cm 40.2 kg/m2 30011.3 2 g 98.3 [degF] 79 /min 98 % 98 % 115/69 mm[Hg] DANIELE BLACK PA - [facility] 11:44:33 Social History Question Answer Notes LastModified by [employer] Details LastModified Time Tobacco Smoking Status Never Smoker DANIELE DE JESUSKOMAL null, PA - [facility] 04/06/2022 11:40:59 Have You Recently Traveled Abroad? No Information not available 04/06/2022 Sex: Unknown Functional Status Question Answer Note LastModified by [employer] Details LastModified Time Do you use any illicit or recreational drugs? No Information not available 04/06/2022 What is your level of alcohol consumption? None Information not available 04/06/2022 Are you currently employed? Yes [employer] Information not available 04/06/2022 Mental Status None recorded. Family History Relationship Description Onset Age of this Age Resolved Age Notes LastModified by Organization Details LastModified Time Mother Migraine [email or web address] Not availab le 04/06/2022 11:40:28 Maternal Grandmother Alzheimer's disease [email or web address] Not available 04/06 11:40:43 Medical History No medical history recorded. Gynecological HistoryNo gynecological history recorded. Obstetrics History GPAL:G 0 P 0 0 0 0 Past Encounters Encounter ID Performer Location Encounter Start Date Encounter Closed Date Diagnosis/Indication Diagnosis SNOMED-CT Code Diagnosis ICD10 Code Diagnosis Note [id number] [address] [facility] [address] [place] [address] 02/25/2015 10:55:16 02/25/2015 12:14:25 [id number] [address] [facility] [address] [place] [address] 04/20/2016 11:12:24 04/20/2016 12:10:16 [id number] Gianni Farias [place] [address] [address] 04/06/2022 11:10:45 04/06/2022 12:29:36 Exposure to SARS-CoV-2 931761493 Z20.822 Acute sinusitis 57173697 J01.90 Health Concerns Section Related Observation LastModified by Organization Detai ls LastModified Time None Recorded Concern Status LastModified by Organization Details LastModified Time None Recorded Advance Directives Directive None Recorded Payers Insurance Date Sequence Insurance Name Policy Number Policy Nova Covered Member ID Nova Member ID Guarantor Name 04/06/2022 1 [facility] (MEDICAID HMO) Celina Bensoney [id number] Celina Duarte Huseyin 04/06/[address] [facility] [id number] Celina Duarte Huseyin [id number] Celina Fontanez Notes Date Note Type Note Provider Name and Address Organization Details Recorded Time 04/06/2022 text/html CongestionReport ed bypatient.Notes:nasal congestion with post nasal drip x 3 days. denies nay fever or fever with chills. no SOB or respiratory distress. Gianni Farias NP [address] [place], [address], [place] - [facility] 04/06/2022 12:21:13 OBGyn Episode No OBEpisode recorded.
== END 2024-10-03 14:27 | disposition home or self-care (01) ==
LOC: HO.HMCC 13:29
PROVIDERS: PCP Internal Medicine; Visit Provider Internal Medicine
DX: Z00.00 Encounter for general adult medical examination without abnormal findings (principal)

== ENCOUNTER → 2024-10-03 13:28 | Outpatient (BNVA) | payer OTHER, SELFPAY | PROVIDERS: PCP Internal Medicine; Visit Provider Internal Medicine | DX: Z00.00 Encounter for general adult medical examination without abnormal findings (principal); Z13.31 Encounter for screening for depression; Z13.39 Encounter for screening examination for other mental health and behavioral disorders | CPT/HCPCS: 96127; 99395 ==

== ENCOUNTER 2025-01-20 08:17 | Outpatient (REF) | payer OTHER, SELFPAY ==
[2025-01-20 14:04] LABS: Resp Syncy Virus RNA Qual PCR NEGATIVE (Negative); SARS COV2 PCR INHOUSE NEGATIVE (Negative)
== END 2025-01-20 08:18 | disposition home or self-care (01) ==
LOC: HO.LAB 08:17
PROVIDERS: Physician Assistant; PCP Internal Medicine
DX: R10.13 Epigastric pain (principal); R11.10 Vomiting, unspecified; R10.32 Left lower quadrant pain; R06.02 Shortness of breath; R50.9 Fever, unspecified; N39.0 Urinary tract infection, site not specified; B34.9 Viral infection, unspecified; R09.89 Other specified symptoms and signs involving the circulatory and respiratory systems; Z32.02 Encounter for pregnancy test, result negative
CPT/HCPCS: 81003; 81025; 83013; 87086; 87637; 99212

== ENCOUNTER 2025-01-20 08:17 | Outpatient (AMB) | payer OTHER, SELFPAY ==
--- OUTSIDE RECORDS SUMMARY | 2025-01-20 08:21 | XMS_ITS | Data Portability ---
Author Organization [facility], [address] Address [address] [place] [address] Assessment No assessment recorded. Plan of Treatment Reminders Order Date Submit Date Provider Last Modified By Organization Details Last Modified Time Details Appointments None recorded. Lab rapid SARS CoV 2 Ag, QL IA, respiratory specimen 2022 [address] [facility] [address] [place] [address], [address] [place] [address], [phone], 3 12:20:34 rapid flu (A+B) 2022 [address] [facility] [address] [place] [address], [address] [place] [address], [phone], 3 12:20:34 Referral None recorded. Procedures None recorded. Surgeries None recorded. Imaging None recorded. Medication Orders prednisone 50 mg tablet 2022 023 [facility]85192, [address] [place], [place], [phone], 3 12:20:43 fexofenadin e-pseudoeph edrine ER 180 mg-240 mg tablet,ext. release 24 hr 2022 023 [facility] #41930, [address] [place], [place], [phone], 3 12:20:43 Patient TargetsNo targets recorded. Patient Instructions Encounter Date Encounter Id Patient Instructions Last Modified By Organization Details Last Modified Time 04/06/2022 [id number] coronavirus (covid-19): care instructions Not available 04/06/2022 [...] masking (see below). For travel guidance, see [facility] s Travel webpage. flory Not available 04/06/2022 12:18:12 Reason for Referral None Reported. Results Created Date Observation Date Name Description Value Unit Range Abnormal Flag Note LastModifiedBy Organization Detail LastModifiedTime 04/06/19 23 04/06/2022 rapid SARS CoV 2 Ag, QL IA, respi rator y speci men Unknown Analyte Normal =Negat charlie Not Available [address] [place] [address], [phone], 04/06/2022 11:36:26 04/06/19 23 04/06/2022 rapid SARS CoV 2 Ag, QL IA, respi rator y speci men Unknown Analyte negati ve Not Available [address] [place] [address], [phone], 04/06/2022 11:36:26 04/06/19 23 04/06/2022 rapid flu (A+B) Unknown Analyte Normal = Negati ve Not Available [address] [place] [address], [phone], 04/06/2022 11:36:44 04/06/19 23 04/06/2022 rapid flu (A+B) Unknown Analyte negati ve Not Available [address] [place] [address], [phone], 04/06/2022 11:36:44 04/06/19 23 04/06/2022 rapid flu (A+B) Unknown Analyte Normal = Negati ve Not Available [address] [place] [address], [phone], 04/06/2022 11:36:44 04/06/19 23 04/06/2022 rapid flu (A+B) Unknown Analyte negati ve Not Available [address] [facility], [place], [address], 04/06/2022 11:36:44 Result Notes None recorded. Problems Name Problem SNOMED Code Status Onset Date Resolution Date Notes Provider Name and Address Organization Details Recorded Time Obese 320339419 Active 04/06/19 23 DANIELE WAYNE null, PA - [facility] 04/06/2022 11:39:39 Problem Notes None recorded. Procedures Surgical History Date Name Laterality Status Provider Name and Address Organization Details Recorded Time Remove tonsils and adenoids completed DANIELE WAYNE PA - [facility] 04/06/2022 11:39:46 procedure on gallbladder completed DANIELE BLACK PA - [facility] 04/06/2022 11:39:57 Imaging Results None recorded. Procedure Notes None recorded. Medical Equipment None Reported. Allergies Allergen ID Allergen Name Allergen Category Reaction Reaction Severity Criticality Documentation Date Start Date Code Code System Note Provider Name and Address Organization Details Recorded Time 605449 aspirin medicatio n anaphylax is severe high 04/06/2022 1191 RxNorm DANIELE BLACK null, PA - [facility] 3 11:38:11 621167 Product containin g penicilli n (product) medicatio n anaphylax is Not available high 04/06/2022 05188 8001 SNOMED DANIELE WAYNE null, PA - [...] height Body mass index (BMI) Body weight Pain severity - 0-10 verbal numeric rating [Score] - Reported Body temperature Heart rate Oxygen saturation Oxygen saturation in Arterial blood by Pulse oximetry Systolic And Diastolic Provider Name and Address Organization Details Last Updated DateTime 19 /min 157.48 cm 40.2 kg/m2 63537.3 2 g 0 98.3 [degF] 79 /min 98 % 98 % 115/69 mm[Hg] DANIELE WAYNE PA - [facility] 11:44:33 Social History Question Answer Notes LastModified by [employer] ID Details LastModified Time Tobacco Smoking Status Never Smoker DANIELE BLACK null, PA - [facility] 04/06/2022 11:40:59 Have You Recently Traveled Abroad? No Information not available 04/06/2022 Sex: Unknown Functional Status Question Answer Note LastModified by [employer] ID Details LastModified Time Do you use any [...] Diagnosis SNOMED-CT Code Diagnosis ICD10 Code Diagnosis IMO Codes Diagnosis Note [id number] [facility] [facility] [address] [place] [address] 02/25/2015 10:55:16 02/25/2015 12:14:25 [id number] [address] [address] [place] [address] 04/20/2016 11:12:24 04/20/2016 12:10:16 [id number] Gianni Farias NP [address] [facility] [place] [address] 04/06/2022 11:10:45 04/06/2022 12:29:36 Exposure to SARS-CoV-2 899346579 Z20.822 Acute sinusitis 15490915 J01.90 Health Concerns Section Related Observation LastModified by Organization Detai ls LastModified Time None Recorded Concern Status LastModified by Organization Details LastModified Time None Recorded Advance Directives Directive None Recorded Payers Insurance Date Sequence Insurance Name Policy Number Policy Nova Covered Member ID Nova Member ID Guarantor Name 04/06/2022 1 [facility] (MEDICAID HMO) Celina Duarte Huseyin [id number] Celina Duarte Huseyin 04/06/2022 1 [facility] [id number] Celina Duarte Huseyin [id number] Celina Huseyin Notes Date Note Type Note Provider Name and Address Organization Details Recorded Time 04/06/2022 text/html COVID-19 SymptomsReported by Patient FatigueReported by Patient CongestionReported by Patientnasal congestion with post nasal drip x 3 days. denies nay fever or fever with chills. no SOB or respiratory distress. Gianni Farias NP [address] [place], [address], [place] - [facility] 04/06/2022 12:21:13 OBGyn Episode No OBEpisode recorded.
--- OUTSIDE RECORDS SUMMARY | 2025-01-20 08:21 | XMS_ITS | Clinical Summary ---
Author Organization [facility] Address [address] [address] Phone Care Team Providers Care After School Program Assistant Name Role Phone Pcp, Unknown Primary Care Provider Unavailabl e Allergies Active Allergy Reactions Criticality Noted Date Comments Aspirin 09/05/2021 Penicillins 09/05/2021 Immunizations Immunization Administration Dates Next Due Tdap 09/05/2021 Social History Tobacco Use Types Packs/Day Years Used Date Smoking Tobacco: Never Assessed Education Answer Date Recorded Are you interested in more education? Not on olvin e 07/19/2022 Are you concerned about learning? Not on file 07/19/2022 No 07/19/2022 No 07/19/2022 Digital Access Answer Date Recorded No 08/19/2022 No 08/19/2022 Reliable internet access at home? Not on file 08/19/2022 Device with a working camera? Not on file Comments Unknown Sex and Gender Information Value Date Recorded Sex Assigned at Not on file Legal Sex Female 8:22 PM EDT Gender Identity Not on file Sexual Orientation Not on file Last Filed Vital Signs Vital Sign Reading Time Taken Comments Blood Pressure 128/81 09/05/2021 8:36 PM EDT Pulse 71 09/05/2021 8:36 PM EDT Temperature 37 C (98.6 F) 09/05/2021 8:36 PM EDT Respiratory Rate 16 09/05/2021 8:36 PM EDT Oxygen Saturation 99% 09/05/2021 8:36 PM EDT Inhaled Oxygen Concentration - - Weight 97.5 kg (215 lb) 09/05/2021 8:36 PM EDT Height 160 cm (5' 3 ) 09/05/2021 8:36 PM EDT Body Mass Index 38.09 09/05/2021 8:36 PM EDT Plan of Treatment Not on file Medical Devices Not on file Insurance [facility] [employer] (Home) [address] [place] [address] Care Teams After School Program Assistant Relationship Specialty Start Date End Date Pcp, Unknown PCP - General 09/05/21 Additional Source Comments The information contained in this document represents components of the legal health record. It is not the complete legal health record.[facility]
[2025-01-20 08:48] VITALS: BP 120/82; PULSE 88; TEMP 37.2; O2SAT 97; BMI 44.1
--- NOTE | 2025-01-20 08:52 | MHC.OFFWIV ---
Intake Vital Signs 01/20/25 08:48 Height 5 ft 3 in Weight 249 lb BMI 44.1 BP 120/82 Blood Pressure Location Lt brachial Position Sitting Pulse 88 Pulse Source Pulse Oximeter Temp 99.0 F Temp Source Oral Pulse Oximetry (%) 97 Oxygen Delivery Method Room Air Intake Visit Reasons: ep sick vomiting Patient Tobacco Use Status: Never used Tobacco Allergies aspirin Allergy (Severe, Verified 01/20/25 08:51) rash throat closes bismuth subsalicylate (From Pepto-Bismol) Allergy (Verified 01/20/25 08:51) severe upset stomach Penicillins Allergy (Verified 01/20/25 08:51) rash throat closes Do you need a note to return to daycare/school/sports/work: Yes HPI HPI Comments History of Present Illness Details History - The patient is a 34-year-old female presenting with vomiting, fever, abdominal pain, urinary symptoms for 6 days and now feeling short of breath for one day. - She denies history of asthma or COPD or any other major illnesses and does not take any medication on a regular basis. - Vomiting: The patient reports vomiting off and on since last Thursday, approximately six days ago. - Fever: The patient has experienced fevers, with the highest recorded temperature being 99?F, although her baseline temperature is 97?F. - Abdominal pain: The patient reports intermittent abdominal pain, denies diarrhea. Denies ingesting bad food. - Urinary symptoms: The patient describes a sensation of needing to urinate without actual urination, with no burning sensation during urination. - Dyspnea: The patient reports shortness of breath that developed last night, without an associated cough, congestion, sinus pain or ear pain. - Rash: The patient has a rash on her cheeks, which she states is normal for her. - She is s/p cholecystectomy Review of Systems - Gastrointestinal: Reports vomiting since last Thursday. Denies diarrhea. - Constitutional: Reports fever with a maximum temperature of 99?F. Baseline temperature is 97?F. - Genitourinary: Reports sensation of needing to urinate without actual urination. Denies burning with urination. - Respiratory: Reports dyspnea without cough. - Dermatological: Reports rash on cheeks, which is normal for her. All systems reviewed and are unremarkable except as noted in HPI Physical Exam General: Cooperative, healthy appearing, comfortable and no acute distress Orientation/consciousness: Patient oriented x3 Limitations: No limitations Head: Normal to inspection Ears: Hearing grossly normal bilaterally, external ears normal, EAC's normal bilaterally and TM's normal bilaterally Nose: Normal external nose present, Normal nares present and No nasal discharge present Face and sinus: small areas of flat erythematous rash on lateral sides of bilateral nares and sinuses nontender Mouth: Normal oral and palatal mucosa present and moist mucous membranes Throat: Tonsils absent, no exudates, uvula midline, posterior oropharynx erythema Eyes: Appearance normal, both eyes and all related structures Neck: Normal visual inspection, full ROM Respiratory: Clear to auscultation bilaterally. Normal respiratory effort, able to speak in complete sentences, no cough, no respiratory distress, not tachypneic, no tripod positioning and no use of accessory muscles Cardiovascular: Regular rate and rhythm. Normal S1 and S2 GI: obese, soft, no guarding, TTP epigastric and LLQ with deep palpation, negative mcburney's Skin: No rashes or lesions noted, except for some redness on the face, like a little rash on each cheek Neuro: Patient oriented x3 Extremities: Normal to inspection and Yes no clubbing, cyanosis or edema PFSH Medical History Annual physical exam Surgical History Hx of adenoidectomy Hx of tonsillectomy Hx of cholecystectomy Family History Father No problems noted. Mother Lung disease Social History Household Members Other:: lives with father, works for [employer], Housing: House Patient Tobacco Use Status: Never used Tobacco e-Cigarette/Vaping Use: Never Used service: No Current occupational status: employed Cognitive needs: No Hearing needs: No Vision needs: Yes Physical Exam Vital Signs: Last Vital Signs Temp 99.0 F 01/20/25 08:48 Pulse 88 01/20/25 08:48 BP 120/82 01/20/25 08:48 Pulse Ox 97 01/20/25 08:48 Oxygen Delivery Method Room Air 01/20/25 08:48 BMI result Body Mass Index 44.1 Results AMB Urinalysis, Automated UA Leukoctes 15 Adri/uL Last Edit by Leida Barrera MA on 01/20/25 09:32 UA Nitrite Negative Last Edit by Leida Barrera MA on 01/20/25 09:32 UA Urobilinogen 0.2 mg/dL Last Edit by Leida Barrera MA on 01/20/25 09:32 UA Protein 0 mg/dL Last Edit by Leida Barrera MA on 01/20/25 09:32 UA pH 6.0 Last Edit by Leida Barrera MA on 01/20/25 09:32 UA Blood 200 Matthias/uL Last Edit by Leida Barrera MA on 01/20/25 09:32 3+ Leida Barrera 01/20/25 09:32 UA Specific [place] 1.015 Last Edit by Leida Barrera MA on 01/20/25 09:32 UA Ketone Negative Last Edit by Leida Barrera MA on 01/20/25 09:32 UA Bilirubin 0 mg/dL Last Edit by Leida Barrera MA on 01/20/25 09:32 UA Glucose 0 mg/dL Last Edit by Leida Barrera MA on 01/20/25 09:32 AMB Test Urine AMB Test Urine Negative Last Edit by Karmen Kimball CMA on 01/20/25 09:39 Results Reviewed Results Reviewed: Laboratory Last Values Urine pH (Auto) 6.0 01/20/25 09:13 Specific [place] (Auto) 1.015 01/20/25 09:13 Urine Protein (Auto) 0 mg/dL 01/20/25 09:13 Glucose (UA)(Auto) 0 mg/dL 01/20/25 09:13 Urine Ketones (Auto) Negative 01/20/25 09:13 Urine Blood (Auto) 200 Matthias/uL H* 01/20/25 09:13 Urine Nitrite (Auto) Negative 01/20/25 09:13 Urine Bilirubin (Auto) 0 mg/dL 01/20/25 09:13 Urine Urobilinogen (Auto) 0.2 mg/dL 01/20/25 09:13 Leukocyte Esterase (Auto) 15 Adri/uL H 01/20/25 09:13 Tst Clinic Negative 01/20/25 09:38 Assessment & Plan Assessment & Plan (1) Acute viral syndrome: Code(s): B34.9 - Viral infection, unspecified Plan: Plan Patient was informed and verbally consented to the use of an ambient scribe for clinic note documentation during this visit. Vomiting and abdominal pain - VSS, pt well appearing and PE remarkable for slight TTP w/deep palpation of LLQ and epigastric area. - Plan to perform H. pylori test to rule out infection as a cause of symptoms. - Prescribed Zofran for symptomatic relief of nausea. - Urine preg negative - Advised to monitor temperature and seek emergency care if fever exceeds 100.4?F or if her overall symptoms get worse. Urinary Symptoms - Urinalysis with + leuks and + blood, neg nitrites, will treat based on symptoms with Bactrim due to allergies. - Will send culture. Dyspnea - O2 Sat 97%, pt speaking in full sentences, lungs clear to auscultation, no immediate intervention required. Orders: Orders AMB Urinalysis Automated Today Z13.9 - Encounter for screening, unspecified Urine Culture Today N39.0 - Urinary tract infection, site not specified H Pylori Breath Test Today R11.10 - Vomiting, unspecified AMB HCG Urine Test Today Z32.02 - Encounter for test, result negative Medications: New sulfamethoxazole-trimethoprim 800-160 mg (Bactrim DS) 1 tab PO Q12H 6 tabs 0RF ondansetron 4 mg PO Q8H PRN 10 tabs 0RF nausea and vomiting Coding Level of Care Code Est Pt Level 4 (10118) Diagnoses Acute viral syndrome B34.9
== END 2025-01-20 09:46 | disposition home or self-care (01) ==
PROVIDERS: PCP Internal Medicine; Visit Provider Physician Assistant
DX: Z13.9 Encounter for screening, unspecified (principal); Z32.02 Encounter for pregnancy test, result negative; B34.9 Viral infection, unspecified

== ENCOUNTER 2025-02-13 10:09 | Outpatient (AMB) | payer OTHER, SELFPAY ==
[2025-02-13 10:35] VITALS: BP 140/80; PULSE 76; O2SAT 99; BMI 42.5
--- NOTE | 2025-02-13 10:35 | MHC.OFFWIV ---
Intake Vital Signs 02/13/25 10:35 Height 5 ft 3 in Weight 240 lb BMI 42.5 BP 140/80 H Blood Pressure Location Lt brachial Position Sitting Pulse 76 Pulse Source Pulse Oximeter Pulse Oximetry (%) 99 Oxygen Delivery Method Room Air Intake Visit Reasons: EP High heart rate concerns Intake Note: Patient presents c/o racing, increasing & skipping heart beat x4 days. Patient Tobacco Use Status: Never used Tobacco Allergies aspirin Allergy (Severe, Verified 02/13/25 10:38) rash throat closes bismuth subsalicylate (From Pepto-Bismol) Allergy (Verified 02/13/25 10:38) severe upset stomach Penicillins Allergy (Verified 02/13/25 10:38) rash throat closes Do you need a note to return to daycare/school/sports/work: No HPI HPI Comments History of Present Illness Details 34 y/o female presents with a 4-day history of heart palpitations and increased heart rate. She reports the initial episode occurred at work, lasting a few minutes, accompanied by chest tightness and mild chest pain. Symptoms recurred on Thursday and over the weekend. She notes that palpitations typically occur when standing up and resolve after resting for a few minutes. Denies stress, anxiety, shortness of breath, dizziness, headaches, asthma, or recent upper respiratory infection symptoms. [facility] Medical History (Updated 02/13/25 @ 12:09 by Lynn Weldon NP) Heart palpitations Annual physical exam Surgical History Hx of adenoidectomy Hx of tonsillectomy Hx of cholecystectomy Family History Father No problems noted. Mother Lung disease Social History Household Members Other:: lives with father, works for [employer], Housing: House Patient Tobacco Use Status: Never used Tobacco e-Cigarette/Vaping Use: Never Used service: No Current occupational status: employed Cognitive needs: No Hearing needs: No Vision needs: Yes Review of Systems Const All systems reviewed & are unremarkable except as noted in HPI and below Physical Exam Vital Signs: Last Vital Signs Pulse 76 02/13/25 10:35 BP 140/80 H 02/13/25 10:35 Pulse Ox 99 02/13/25 10:35 Oxygen Delivery Method Room Air 02/13/25 10:35 BMI result Body Mass Index 42.5 Const General: comfortable and no acute distress Nutritional Appearance: obese Orientation/consciousness: patient oriented x3 Resp Effort & Inspection: normal respiratory effort Auscultation: clear to auscultation bilaterally Cardio Heart sounds: S1 normal heart sound present and S2 normal heart sound present Neuro General: patient oriented x3, gait normal and moves all extremities Psych Speech and movement: Normal speech and movement present Assessment & Plan Assessment & Plan (1) Heart palpitations: Code(s): R00.2 - Palpitations Plan: Primary concern: Palpitations with transient tachycardia and associated chest discomfort, positional (orthostatic) component noted. Differential diagnoses may include: Orthostatic tachycardia / POTS vs Arrhythmia vs Thyroid dysfunction vs Electrolyte disturbances vs Anxiety/panic episodes (less likely given patient denial of stress/anxiety). Consider Holter monitor or event recorder if palpitations persist - deferred to PCP Advised patient to note timing, triggers, duration of palpitations Encouraged hydration and gradual positional changes (especially from lying/sitting to standing) Follow-up: Close follow-up with primary care or cardiology. Immediate ED if severe chest pain, syncope, or shortness of breath occurs. Coding Level of Care Code Est Pt Level 4 (23784) Diagnoses Heart palpitations R00.2 Time Spent (min) 20
--- OUTSIDE RECORDS SUMMARY | 2025-02-13 12:19 | XMS_ITS | Clinical Summary ---
Author Organization [facility] Address [address] [address] Phone Care Team Providers Care Info Print Press Operator Name Role Phone Pcp, Unknown Primary Care [...] file Medical Devices Not on file Insurance [facility] (Home) [id number] [place] [id number] Care Teams Info Print Press Operator Relationship Specialty Start Date End Date Pcp, Unknown PCP - General 09/05/21 Additional Source Comments The information contained in this document represents components of the legal health record. It is not the complete legal health record.[facility]
== END 2025-02-13 11:58 | disposition home or self-care (01) ==
PROVIDERS: PCP Internal Medicine; Visit Provider Nurse Practitioner Family
DX: R00.2 Palpitations (principal)

== ENCOUNTER → 2025-02-13 10:09 | Outpatient (BNVA) | payer OTHER, SELFPAY | PROVIDERS: PCP Internal Medicine; Visit Provider Nurse Practitioner Family | DX: R00.2 Palpitations (principal) | CPT/HCPCS: 99212 ==